=== PATIENT | female | born 1935 | race Caucasian/White ===

== ENCOUNTER 2018-07-26 09:26 | Emergency (ER) | payer OTHER ==
[~2018-07-26] VITALS: Ht 170.2 cm; Wt 93.1 kg
--- NOTE | 2018-07-26 09:26 | NUR ---
PT BIBA BLS TO ER BED 10
[2018-07-26 09:31] VITALS: BP 153/85
--- NOTE | 2018-07-26 09:39 | NUR ---
BROUGHT IN BY EMS FROM PT'S PRIVATE RESIDENT LEFT FOOT / ANKLE BLEEDING VERICOSE VEIN ; POSSIBLE 1 L BLOOD LOSS BOUNDING PEDAL PULSE---DENIES INJURY HX--HTN, HYPERLIPIDEMIA RX---?? UNSURE OF HTN MED, ASA, VITAMIN D
[2018-07-26] MEDS ORDERED: SILVER NITRATE APPLICATOR 1 EA SWAB TP ONE (09:50)
--- NOTE | 2018-07-26 10:21 | NUR ---
DERMABOND BROUGHT TO BEDSIDE PER EDMD ORDER
[2018-07-26 11:53] VITALS: BP 145/75
--- NOTE | 2018-07-26 11:54 | NUR ---
Patient discharged with v/s stable. Written and verbal after care instructions given and explained. Patient verbalized understanding. WC ASSISTED. All questions addressed prior to discharge. Advised to follow up with PMD.
== END 2018-07-26 11:54 | disposition home or self-care (01) ==
LOC: MED 09:26
DX: I83.892 Varicose veins of left lower extremity with other complications (principal); I10 Essential (primary) hypertension
CPT/HCPCS: 12001; 99283

== ENCOUNTER 2018-09-27 17:28 | Emergency (ER) | payer OTHER ==
[~2018-09-27] VITALS: Ht 172.7 cm; Wt 90.7 kg
--- NOTE | 2018-09-27 17:30 | NUR ---
TATA ESCALERA, CURRENTLY AWAITING BED
[2018-09-27 17:45] VITALS: BP 150/70
--- NOTE | 2018-09-27 18:07 | NUR ---
83 Y/O M PATIENT STATED RT. BOTTOM TOOTH BROKEN AND PAIN RADIATES TO RT. EAR. ICE PACK EASE THE PAIN. PT STATES SHE IS TO HAVE AN APPOINTMENT WITH [facility] TOMORROW BUT COULD NOT WAIT. PT DENIES N/V/D; AAOX4, PERRL. PT DENIES ANY FEVER, CP, SOB, OR COUGH AT THIS TIME; PT STATES 10/10 PAIN AT THIS TIME; VSS; PATIENT POSITIONED FOR COMFORT; HOB ELEVATED; BEDRAILS UP X2; BED DOWN. HX: HTN,HIGH CHOL
[2018-09-27] MEDS ORDERED: KETOROLAC 30 MG/ML VIAL IM ONE (18:30)
--- NOTE | 2018-09-27 19:09 | NUR ---
REPORT GIVEN TO JESSA MCCOY AT THIS TIME FOR CONTINUITY OF CARE.
--- NOTE | 2018-09-27 19:10 | NUR ---
ASSUMED CARE OF PT FROM, MARILEE MCCOY
[2018-09-27 19:35] VITALS: BP 145/69
--- NOTE | 2018-09-27 19:35 | NUR ---
Patient discharged with v/s stable. Written and verbal after care instructions given and explained. Patient alert, oriented and verbalized understanding of instructions. Ambulatory with steady gait. All questions addressed prior to discharge. ID band removed. Patient advised to follow up with PMD. Rx of AMOXICLLIN, MOTRIN, NORCO given. Patient educated on indication of medication including possible reaction and side effects. Opportunity to ask questions provided and answered.
== END 2018-09-27 19:35 | disposition home or self-care (01) ==
LOC: MED 17:28
DX: K04.7 Periapical abscess without sinus (principal)
CPT/HCPCS: 96372; 99283; J1885

== ENCOUNTER 2020-08-30 14:44 | Emergency (ER) | payer OTHER ==
[~2020-08-30] VITALS: Ht 170.2 cm; Wt 81.6 kg
[2020-08-30 14:45] VITALS: BP 160/75
[2020-08-30] MEDS ORDERED: NACL 0.9% 500 ML IV ONE (14:50)
[2020-08-30 15:19] LABS: BASOPHILS % (AUTO) 0.3 % (0.0-2.0); EOSINOPHILS % (AUTO) 0.9 % (0.0-4.0); HEMATOCRIT 35.1 % (36-48); HEMOGLOBIN 11.5 g/dL (12.0-16.0); LYMPHOCYTES # (AUTO) 1.4 K/uL (2.5-16.5); LYMPHOCYTES % (AUTO) 26.8 % (20.5-51.1); MEAN CORPUSCULAR HEMOGLOBIN 27 pg (27-31); MEAN CORPUSCULAR HGB CONC 33 g/dL (33-37); MEAN CORPUSCULAR VOLUME 83.3 fL (80-94); MONOCYTES # (AUTO) 0.5 K/uL (0.8-1.0); MONOCYTES % (AUTO) 10.8 % (1.7-9.3); NEUTROPHILS # (AUTO) 3.1 K/uL (1.8-7.7); NEUTROPHILS % (AUTO) 61.2 % (42.2-75.2); PLATELET COUNT (AUTO) 224 K/uL (140-450); RED BLOOD CELL COUNT(AUTO) 4.22 MIL/uL (4.20-5.40); RED CELL DISTRIBUTION WIDTH 14.6 % (11.6-13.7)
[2020-08-30 15:42] LABS: ALBUMIN 3.3 g/dL (3.4-5.0); ANION GAP 9.5 (8-16); ASPARTATE AMINOTRANSFERASE 21 U/L (15-37); CARBON DIOXIDE 29.4 mmol/L (21-32); CHLORIDE 105 mmol/L (98-107); CREATININE 1.1 mg/dL (0.6-1.3); GLUCOSE 128 mg/dL (74-106); POTASSIUM 3.9 mmol/L (3.5-5.1); SODIUM SERUM 140 mmol/L (136-145); TOTAL BILIRUBIN 0.4 mg/dL (0.0-1.0); UREA NITROGEN, BLOOD 18 mg/dL (7-18)
[2020-08-30 16:00] LABS: APPEARANCE,URINE CLEAR (CLEAR); BILIRUBIN,URINE NEGATIVE (NEGATIVE); BLOOD, URINE TRACE-I (NEGATIVE); COLOR,URINE YELLOW (YELLOW); LEUKOCYTE ESTERASE ,URINE 1+ (NEGATIVE); NITRITE, URINE NEGATIVE (NEGATIVE); PH,URINE 5.5 (5.0-9.0); UGLUCOSE NEGATIVE (NEGATIVE)
[2020-08-30 16:57] VITALS: BP 114/66
--- NOTE | 2020-08-30 19:08 | NUR ---
REPORT RECEIVED FROM DARIUS BISHOP. ASSUMED PATIENT CARE.
--- NOTE | 2020-08-30 19:35 | NUR ---
20G RT AC IV removed, catheter intact and site benign. Applied folded 4x4 gauze and tape to stop bleeding.
--- NOTE | 2020-09-05 17:36 | NUR ---
LATE ENTRY -- NORMAL SALINE INFUSION STARTED 1730 AND COMPLETED AT 1830 08/30/20
== END 2020-08-30 19:45 | disposition home or self-care (01) ==
LOC: MED 14:44
DX: N39.0 Urinary tract infection, site not specified (principal); R42 Dizziness and giddiness; I10 Essential (primary) hypertension; Z98.890 Other specified postprocedural states
CPT/HCPCS: 36415; 70450; 71045; 80053; 81001; 84484; 85025; 87086; 93005; 96360; 99285; J7030

== ENCOUNTER 2023-02-18 16:25 | Emergency (ER) | payer OTHER ==
[~2023-02-18] VITALS: Ht 167.6 cm; Wt 81.6 kg
[2023-02-18 17:02] VITALS: BP 149/72; PULSE 86; RESP 18; TEMP 99.6; O2SAT 98
[2023-02-18] MEDS ORDERED: HYDROcodone/APAP 10/325 MG 1 TAB TAB PO ONE (19:00)
[2023-02-18] MEDS ORDERED: ACET-10509 PO (19:09)
[2023-02-18] MEDS ORDERED: ACET-8905 PO (19:09)
[2023-02-18 19:40] VITALS: BP 149/72; PULSE 86; RESP 18; TEMP 99.6; O2SAT 98
--- NOTE | 2023-02-18 19:40 | NUR ---
Patient discharged with v/s stable. Written and verbal after care instructions given and explained. New rx of tylenol and norco. Patient verbalized understanding. Ambulatory with steady gait. All questions addressed prior to discharge. Advised to follow up with PMD.
== END 2023-02-18 19:40 | disposition home or self-care (01) ==
LOC: MED 16:43
DX: S52.325A Nondisplaced transverse fracture of shaft of left radius, initial encounter for closed fracture (principal); I10 Essential (primary) hypertension; Z79.899 Other long term (current) drug therapy; W18.30XA Fall on same level, unspecified, initial encounter; Y93.89 Activity, other specified; Y92.89 Other specified places as the place of occurrence of the external cause; Y99.8 Other external cause status
CPT/HCPCS: 73110; 99283

== ENCOUNTER 2023-08-06 08:01 | Emergency (ER) | payer OTHER ==
[~2023-08-06] VITALS: Ht 165.1 cm; Wt 87.1 kg
[~2023-08-06 08:01] MED LIST: ACET-10509 PO; ACET-8905 PO
[2023-08-06 08:12] VITALS: BP 150/83; PULSE 79; RESP 22; TEMP 97.2; O2SAT 100
[2023-08-06 09:05] VITALS: BP 150/83; PULSE 79; RESP 22; TEMP 97.2; O2SAT 100
[2023-08-07] MEDS ORDERED: AMOX1TAB8 PO (01:10)
[2023-08-07] MEDS ORDERED: ACET-10509 PO (01:10)
== END 2023-08-06 09:05 | disposition home or self-care (01) ==
LOC: MED 08:01
DX: S01.81XA Laceration without foreign body of other part of head, initial encounter (principal); S60.511A Abrasion of right hand, initial encounter; I10 Essential (primary) hypertension; Z79.899 Other long term (current) drug therapy; W18.39XA Other fall on same level, initial encounter; Y92.89 Other specified places as the place of occurrence of the external cause; Y93.89 Activity, other specified; Y99.8 Other external cause status
CPT/HCPCS: 12013; 90471; 90715; 99283

== ENCOUNTER 2023-08-06 20:59 | Emergency (ER) | payer OTHER ==
[~2023-08-06] VITALS: Ht 172.7 cm; Wt 81.6 kg
[2023-08-06 22:30] VITALS: BP 158/85; PULSE 78; RESP 17; TEMP 98.3; O2SAT 97
[2023-08-06] MEDS ORDERED: ACETAMINOPHEN EXTRA STRENGTH 500 MG TAB PO ONE (23:15)
[2023-08-07] MEDS ORDERED: AMOX1TAB8 PO (01:10)
[2023-08-07] MEDS ORDERED: ACET-10509 PO (01:10)
== END 2023-08-07 01:10 | disposition left against medical advice (07) ==
LOC: MED 20:59
DX: S02.32XA Fracture of orbital floor, left side, initial encounter for closed fracture (principal); M13.812 Other specified arthritis, left shoulder; Z79.899 Other long term (current) drug therapy; W18.30XA Fall on same level, unspecified, initial encounter; Y93.89 Activity, other specified; Y92.89 Other specified places as the place of occurrence of the external cause; Y99.8 Other external cause status
CPT/HCPCS: 70450; 73030; 99284; Q0092